=== PATIENT | female | born 1990 | race Caucasian/White ===

== ENCOUNTER 2017-10-07 09:57 | Emergency (ER) | payer BC, OTHER ==
[2017-10-07 10:52] VITALS: BP 114/69
--- NOTE | 2017-10-07 11:27 | UC ---
Complaint Female HPI - HPI Summary HPI Summary: pt is c/o "a yeast infection" describes as an itch-white d/c. she is also c/o urinary frequency but denies burning and urgency. she has a long hx of yeast infections and uti's that present like this. no abd pain, fever, risk/concern for std. s/s's x 2 days. - History Of Current Complaint Chief Complaint: [facility] Stated Complaint: PERSONAL Time Seen by Provider: 10/07/17 11:00 Hx Obtained From: Patient Hx Last Menstrual Period: last month ?: No Onset/Duration: Gradual Onset Timing: Constant Pain Intensity: 3 Character: Not Applicable - vaginal itch Aggravating Factor(s): Nothing Alleviating Factor(s): Nothing Associated Signs And Symptoms: Positive: Vaginal Discharge. Negative: Fever, Back Pain Related Hx: Similar Episode/Dx as: - yeast infection, uti's - Allergies/Home Medications Allergies/Adverse Reactions: Allergies Allergy/AdvReac Type Severity Reaction Status Date / Time bee venom protein (honey bee) Allergy Anaphylatic Verified 10/07/17 10:40 Shock latex Allergy Rash Verified 10/07/17 10:41 meloxicam Allergy See Comment Verified 10/07/17 10:41 Home Medications: Home Medications Ascorbic Acid/Multivit-Min [Emergen-C 1,000 mg Packet] 1 gena PO DAILY 10/07/17 [ History Confirmed 10/07/17] Etonogestrel [Nexplanon] 68 mg IMPLANT DAILY 10/07/17 [History Confirmed ] PMH/Surg Hx/FS Hx/Imm Hx - Surgical History Surgical History: Yes Surgery Procedure, Year, and Place: left ear abutment for hearing - Family History Known Family History: Negative: Renal Disease - Social History Occupation: Employed Full-time Lives: With Family Alcohol Use: Occasionally Substance Use Type: None Substance Use Comment - Amount & Last Used: occasional use Smoking Status (MU): Former Smoker Type: Cigarettes When Did the Patient Quit Smoking/Using Tobacco: 3 months ago Review of Systems Constitutional: Negative Skin: Negative Eyes: Negative ENT: Negative Respiratory: Negative Cardiovascular: Negative Gastrointestinal: Negative Genitourinary: Frequency, Vaginal/Penile Itching, Vaginal/Penile Discharge - white Motor: Negative Neurovascular: Negative Musculoskeletal: Negative Neurological: Negative Psychological: Negative Is Patient Immunocompromised?: No All Other Systems Reviewed And Are Negative: Yes Physical Exam Triage Information Reviewed: Yes Appearance: Well-Appearing Vital Signs: Initial Vital Signs Temp 98.8 F 10/07/17 10:44 Pulse 75 10/07/17 10:44 Resp 18 10/07/17 10:44 BP 114/69 10/07/17 10:44 Pulse Ox 99 10/07/17 10:44 Vital Signs Reviewed: Yes Eyes: Positive: Conjunctiva Clear ENT: Positive: Normal ENT inspection Neck: Positive: Supple, Nontender, No Lymphadenopathy Respiratory: Positive: Lungs clear, Normal breath sounds Cardiovascular: Positive: RRR, No Murmur Abdomen Description: Positive: Nontender, No Organomegaly, Soft, Other: - Pelvic exam refused by pt citing no risk/concern for std and c/w pmh yeast infections Musculoskeletal: Positive: No Edema Neurological: Positive: Alert Psychological Exam: Normal Psychological: Positive: Age Appropriate Behavior Skin Exam: Normal Diagnostics - Laboratory Diagnostic Studies Completed/Ordered: small leuks on u/a which may be from yeast vaginitis and urionary symptom is frequency only thus will not tx for uti and will wait for the culture. tx for yeast vaginitis based on hx Complaint Female Dx - Course Course Of Treatment: pt request Terconazole for external itch plus Diflucan as well. - Differential Dx/Diagnosis Provider Diagnoses: yeast vaginitis Discharge - Discharge Plan Condition: Stable Disposition: HOME Prescriptions: Fluconazole [Diflucan] 150 mg PO ONCE 1 Days #1 tablet Terconazole 20 gm VG DAILY 3 Days #1 cream.appl Patient Education Materials: Vaginitis (ED) Referrals: Ashley Perez MD [Primary Care Provider] - 7 Days
== END 2017-10-07 11:50 | disposition home or self-care (01) ==
LOC: UCCORT 09:57
DX: B37.3 Candidiasis of vulva and vagina (principal); R35.0 Frequency of micturition; Z87.440 Personal history of urinary (tract) infections; Z87.891 Personal history of nicotine dependence
CPT/HCPCS: 81003; 87086; 99212; G0463

== ENCOUNTER 2017-12-24 16:30 | Emergency (ER) | payer OTHER ==
[2017-12-24 17:11] VITALS: BP 123/86
--- NOTE | 2017-12-24 17:18 | UC ---
Complaint Female HPI - HPI Summary HPI Summary: 27 yo female with vaginal d/c and itching x days hx frequent yeast infections no f/c no abd pain - History Of Current Complaint Stated Complaint: URINARY COMPLAINT Hx Obtained From: Patient Hx Last Menstrual Period: 12/16/17 Onset/Duration: Gradual Onset, Lasting Days Timing: Constant Severity Initially: Mild Severity Currently: Mild Pain Intensity: 0 Pain Scale Used: 0-10 Numeric Character: Burning Aggravating Factor(s): [place] Associated Signs And Symptoms: Positive: Vaginal Discharge Related Hx: Similar Episode/Dx as: - yeast vaginitis - Allergies/Home Medications Allergies/Adverse Reactions: Allergies Allergy/AdvReac Type Severity Reaction Status Date / Time bee venom protein (honey bee) Allergy Anaphylatic Verified 12/24/17 16:58 Shock latex Allergy Rash Verified 12/24/17 16:58 meloxicam Allergy See Comment Verified 12/24/17 16:58 Home Medications: Home Medications Naproxen Sodium [Aleve] 220 mg PO BID 12/24/17 [History Confirmed 12/24/17] PMH/Surg Hx/FS Hx/Imm Hx Previously Healthy: Yes - Surgical History Surgical History: Yes Surgery Procedure, Year, and Place: left ear abutment for hearing - Family History Known Family History: Positive: Hypertension, Diabetes, Other - mom with hx DVTs Negative: Renal Disease - Social History Alcohol Use: Occasionally Substance Use Type: None Substance Use Comment - Amount & Last Used: occasional use Smoking Status (MU): Former Smoker Type: Cigarettes When Did the Patient Quit Smoking/Using Tobacco: 3 months ago Review of Systems Constitutional: Negative Skin: Negative Eyes: Negative ENT: Negative Respiratory: Negative Cardiovascular: Negative Gastrointestinal: Negative Genitourinary: Vaginal/Penile Itching, Vaginal/Penile Discharge Motor: Negative Neurovascular: Negative Musculoskeletal: Negative Neurological: Negative Psychological: Negative Is Patient Immunocompromised?: No All Other Systems Reviewed And Are Negative: Yes Physical Exam Triage Information Reviewed: Yes Appearance: Well-Appearing, No Pain Distress, Well-Nourished Vital Signs: Initial Vital Signs Temp 98.5 F 12/24/17 17:01 Pulse 81 12/24/17 17:01 Resp 16 12/24/17 17:01 BP 123/86 12/24/17 17:01 Pulse Ox 99 12/24/17 17:01 Vital Signs Reviewed: Yes Eyes: Positive: Conjunctiva Clear ENT: Positive: Hearing grossly normal. Negative: Nasal congestion, Nasal drainage, Trismus, Muffled voice, Hoarse voice Neck: Positive: Supple Respiratory: Positive: Lungs clear, Normal breath sounds, No respiratory distress, No accessory muscle use Cardiovascular Exam: Normal Cardiovascular: Positive: RRR Abdomen Description: Positive: Nontender, No Organomegaly, Soft. Negative: CVA Tenderness (R), CVA Tenderness (L) Pelvic Exam: Positive: No Cerv. Motion Tender, Discharge - whitish. Negative: External Exam Normal - erythema labia, Mass, Tender w/ Cervical Motion, Tender Adnexa, Tender Uterus Musculoskeletal: Positive: ROM Intact, No Edema Neurological: Positive: Alert Psychological Exam: Normal Skin Exam: Normal Complaint Female Dx - Differential Dx/Diagnosis Provider Diagnoses: yeast vaginitis Discharge - Sign-Out/Discharge Documenting (check all that apply): Discharge/Admit/Transfer - Discharge Plan Condition: Stable Disposition: HOME Patient Education Materials: Yeast Infection (ED) Referrals: Rock Johnson MD [Primary Care Provider] - If Needed Additional Instructions: urine culture pending - Billing Disposition and Condition Condition: STABLE Disposition: HOME
--- NOTE | 2017-12-26 07:03 | UC ---
- Progress Note Progress Note: notify pt + BV as well as yeast flagyl eRxed Discharge - Sign-Out/Discharge Documenting (check all that apply): Post-Discharge Follow Up - Discharge Plan Condition: Stable Disposition: HOME Prescriptions: Fluconazole 150 MG (NF) [Diflucan 150 mg (NF)] 150 mg PO ONCE #2 tab metroNIDAZOLE [Flagyl 500 MG TAB] 500 mg PO BID #14 tab Terconazole [Terazol 7] 45 gm VG BEDTIME 7 Days #1 cream.appl Patient Education Materials: Yeast Infection (ED) Referrals: Rock Johnson MD [Primary Care Provider] - If Needed Additional Instructions: urine culture pending - Billing Disposition and Condition Condition: STABLE Disposition: HOME
== END 2017-12-24 17:43 | disposition home or self-care (01) ==
LOC: UCCORT 16:30
DX: N76.0 Acute vaginitis (principal); B96.89 Other specified bacterial agents as the cause of diseases classified elsewhere; B37.3 Candidiasis of vulva and vagina; Z87.891 Personal history of nicotine dependence; Z88.8 Allergy status to other drugs, medicaments and biological substances
CPT/HCPCS: 81003; 87086; 87480; 87491; 87510; 87591; 87661; 99212; G0463

== ENCOUNTER 2018-04-11 14:13 | Emergency (ER) | payer OTHER ==
--- OUTSIDE RECORDS SUMMARY | 2018-04-11 14:26 | XMS REPORT ---
:1990 External Reference #:[id number] Author Organization Mitchel Lange M.D. Address [address] [place] [address] Phone [phone] Care Team Providers Name Role Phone Mariana Hoffman PA Care Team Information Valet Cashier Unavailable Payers Type Date Identification Numbers Payment Provider Subscriber Commercial Policy Number: [id number] [employer] Branden Montes PayID: [id number] 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 Active Family History Date Family Member(s) Problem(s) Comments Father Hyperthyroidism Mother Deep Vein Thrombosis Aunt Insulin Dependent Diabetes Social History Type Date Description Comments Marital Status Legal Status: Never Lives With Boyfriend Lives With Son ETOH Use Occasionally consumes alcohol Smoking 12/08/2015 Patient is a former smoker Quit 02/2014 (Occasional single cigarette social environment.) Recreational Drug Use Denies Drug Use Daily Caffeine Consumes on average 5 cups of regular coffee per day Allergies, Adverse Reactions, Alerts Date Description Reaction Status Severity Comments 04/20/2015 Latex active 12/02/2017 Meloxicam Anaphylaxis active 12/02/2017 Bee Sting active hives lips swell 04/20/2015 NKDA inactive Medications Medication Date Status Form Strength Qnty SIG Indications Ordering Provider Benzoyl Peroxide 03/10/ Active Gel 5% 45gm use twice L70.0 Mitchel 2017 a day Castellan os, M.D. Clindamycin 02/17/ Active Lotion 1% 60ml use twice L70.0 Mitchel Phosphate 2017 a day Castellan os, M.D. Lidocaine 12/16/ Active Solution 2% 30ml use on the B97.11 Mitchel Viscous 2018 painful Castellan ulcer as os, M.D. needed Baha Implant 12/02/ Active Mitchel 2018 Castellan os, M.D. Albuterol 12/02/ Active Nebulizer 0.63mg/3M 30uni use via Mitchel Sulfate 2017 L ts nebulizer Castellan four times os, M.D. a day as needed for asthma Naproxen 06/21/ Active Tablets 500mg 60tab 1 by mouth M25.562 2014 s twice a Castellan day os, M.D. Benzoyl Peroxide 02/17/ Hx Gel 2.5% 60gm use twice L70.0 Mitchel 2017 - a day Castellan 03/10/ os, M.D. 2018 Clindamycin 02/12/ Hx Gel 1.2-5% 45gm use daily L70.0 Mitchel Phos-Benzoyl 2017 - Castellan Perox 02/17/ os, M.D. 2018 Hydrocortisone 12/18/ Hx Cream 2.5% 30gm apply once L23.1 Mitchel 2015 - daily Castellan 12/18/ os, M.D. 2016 Diprolene 12/18/ Hx Ointment 0.05% 1tube use twice L23.1 Mitchel 2015 - a day Castellan 12/02/ until os, M.D. 2018 clear Metronidazole 10/02/ Hx Tablets 500mg 20tab one pill N77.1 Mitchel 2015 - s twice a Castellan 12/02/ day no os, M.D. 2018 etoh with product Clotrimazole/Bet 07/11/ Hx Cream 1-0.05% 45gm use 2 Mitchel amethasone 2015 - times a Castellan Dipropionate 10/02/ day until os, M.D. 2016 clear Amitriptyline 07/04/ Hx Tablets 50mg 30tab one at G47.00 Mitchel HCL 2015 - s bedtime Castellan 12/02/ os, M.D. 2018 Buspirone HCL 10/20/ Hx Tablets 5mg 90tab 1 by mouth F41.9 Mitchel 2014 - s daily Castellan 10/02/ os, M.DErick 2016 Maxalt-SENIOR SYSTEM OPERATOR 20/ Hx Tablets 5mg 18tab 1 every 2 G43.011 Mitchel 2014 - Dispers s hours ( Castellan 12/02/ max 3 per os, M.D. 2017 day ) Inderal LA 06/06/ Hx Caps ER 60mg 30cap one daily G43.011 Mitchel 2014 - 24HR s Castellan 10/02/ os, M.DErick 2016 Tylenol 04/20/ Hx Tablets 325mg 120ta 2 tabs po Mitchel 2014 - q4-6hrs Castellan 12/02/ prn os, M.DErick 2017 Sertraline HCL 04/20/ Hx Tablets 50mg 30tab 1 by mouth 311 Mitchel 2014 - every day Castellan 06/06/ os, M.DErick 2014 Medications Administered in Office Medication Date Status Form Strength Qnty SIG Indications Ordering Provider Tuberculosis, Administered Injection Wolak, Mariana, Mantoux 016 PA Tuberculosis, Administered Injection Wolak, Mariana, Mantoux 016 PA Tuberculosis, Administered Injection Mitchel Mantnam Lange M.D. Tuberculosis, Administered Injection Unknown Mantoux 015 Immunizations CPT Code Status Date Vaccine Reaction Lot # 65349 Given 10/04/2015 Hep B Vaccine - Adult Hep B Adult Dosage [id number] 60910 Given 10/02/2015 Influenza risk & benefits Flu Vac Vac,Quad,Split=>3 Yrs discussed [id number] 71086 Given 04/25/2009 Influenza Vac,Quad,Split=>3 Yrs 72191 Given 06/29/2007 HPV (Old Code) 3 Dose Gardasil 46219 Given 02/28/2007 HPV (Old Code) 3 Dose Gardasil 03135 Given 12/29/2006 Meningococcal conjugate vaccine Menveo 25593 Given 12/29/2006 Tdap Vaccine over 7 yrs old 74429 Given 12/29/2006 HPV (Old Code) 3 Dose Gardasil 11358 Given 01/19/2002 Hep B Vaccine - NB-19 Yrs (3 Dose) 17332 Given 06/03/2000 Hep B Vaccine - NB-19 Yrs (3 Dose) 94197 Given 06/03/1995 MMR 88253 Given 03/05/1995 DTaP Immunization 03323 Given 03/05/1995 OPV Polio 74840 Given 12/25/1992 OPV Polio 74611 Given 12/25/1992 DTaP Immunization 92286 Given 12/04/1992 MMR 48191 Given 07/30/1991 Hib, PRP-T Conjugate 4 Dose Sched acthib 45731 Given 03/31/1991 Hib, PRP-T Conjugate 4 Dose Sched acthib 29273 Given 1990 OPV Polio 49726 Given 1990 DTP 34910 Given 1990 Hib, PRP-T Conjugate 4 Dose Sched acthib 87731 Given 1990 OPV Polio 26888 Given 1990 DTP 20776 Given Unknown DTP Vital Signs Date Vital Result Comment 03/31/2018 Weight 142.00 lb BP Systolic 108 mmHg BP Diastolic 64 mmHg 12/02/2017 Weight 136.00 lb BP Systolic 98 mmHg BP Diastolic 64 mmHg Height 63.25 inches 5'3.25" Heart Rate 80 /min O2 % BldC Oximetry 99 % BMI (Body Mass Index) 23.9 kg/m2 02/08/2016 Weight 127.00 lb BP Systolic 90 mmHg BP Diastolic 48 mmHg 12/19/2015 BP Systolic 110 mmHg BP Diastolic 68 mmHg 12/08/2015 Weight 129.00 lb BP Systolic 90 mmHg BP Diastolic 60 mmHg 10/02/2015 Weight 130.00 lb BP Systolic 108 mmHg BP Diastolic 79 mmHg Height 63 inches 5'3" Heart Rate 70 /min Body Temperature 98.8 F Respiratory Rate 12 /min BMI (Body Mass Index) 23.0 kg/m2 07/04/2015 Weight 132.00 lb BP Systolic 108 mmHg BP Diastolic 72 mmHg Height 62.75 inches 5'2.75" Heart Rate 64 /min Body Temperature 98.5 F Respiratory Rate 16 /min BMI (Body Mass Index) 23.6 kg/m2 06/21/2015 Weight 134.00 lb BP Systolic 90 mmHg BP Diastolic 60 mmHg 06/06/2015 Weight 131.00 lb BP Systolic 102 mmHg BP Diastolic 70 mmHg 04/20/2015 Weight 130.00 lb BP Systolic 120 mmHg BP Diastolic 70 mmHg Results Test Date Test Result H/L Range Note Poc Urinalysis 12/24/2017 Poc Glucose, Urine Negative Negative Poc Bilirubin, Urine Negative Negative Poc Ketone, Urine Negative Negative Poc Specific [place], Urine 1.010 1.010-1.030 Poc Blood, Urine Trace-intact Negative Poc pH, Urine 6.0 5-9 Poc Protein, Urine Negative Negative Poc Urobilinogen, Urine 0.2 Negative Poc Nitrite, Urine Negative Negative Poc Leukocytes, Urine 1+ Negative Poc Color, Urine Yellow Poc Clarity, Urine Slightly Cloudy 1 Urine Culture And 12/24/2017 Urine Culture SEE RESULT BELOW 2, 3 Sensitivities GC/Chlamydia Amplified 12/24/2017 Chlamydia Negative Negative 4 Rna trachomatis Rna Neisseria gonorrhoeae (GC) Rna Negative Negative 4 Laboratory test 12/24/2017 Gardnerella/Yeast: Vaginal SEE RESULT BELOW 4, 5 finding Dna Trichomonas vaginalis Rna Negative Negative 4, 6 Laboratory test finding 12/04/2017 LDL Cholesterol Direct 44 mg/dL 7, 8 Basic Metabolic Panel 12/04/2017 Sodium 138 mmol/L Low 139-145 7 Potassium 3.9 mmol/L 3.5-5.0 7 Chloride 104 mmol/L 101-111 7 Co2 Carbon Dioxide 27 mmol/L 22-32 7 Anion Gap 7 mmol/L 2-11 7 Glucose 75 mg/dL 70-100 7 Blood Urea Nitrogen 7 mg/dL 6-24 7 Creatinine 0.56 mg/dL 0.51-0.95 7 BUN/Creatinine Ratio 12.5 8-20 7 Calcium 9.1 mg/dL 8.6-10.3 7 Egfr Non- 129.9 >60 7 Egfr 167.0 >60 7, 9 CBC 12/04/2017 White Blood Count 8.8 10^3/uL 3.5-10.8 7 Red Blood Count 4.18 10^6/uL 4.0-5.4 7 Hemoglobin 12.7 g/dL 12.0-16.0 7 Hematocrit 39 % 35-47 7 Mean Corpuscular Volume 93 fL 80-97 7 Mean Corpuscular Hemoglobin 31 pg 27-31 7 Mean Corpuscular HGB Conc 33 g/dL 31-36 7 Red Cell Distribution Width 14 % 10.5-15 7 Platelet Count 285 10^3/uL 150-450 7 Mean Platelet Volume 7.9 um3 7.4-10.4 7 Laboratory test 12/02/2017 HPV Laboratory [facility] 10 finding <SEE NOTE> Laboratory test 12/02/2017 [facility] Pap LABORATORY [facility] 11 finding <SEE NOTE> Laboratory test 02/08/2016 HCG,Serum NEGATIVE (Negative) finding (Qualitative) Laboratory test 12/14/2015 Cyst, Cutaneous See Note 12 finding Laboratory test 10/03/2015 Rubeola Antibodies, 163.0 Immune>29.9AU 13 finding Igg Mumps Antibodies, Igg <9.0 Immune>10.9AU Low 14 Varicella-Zoster Virus IgG Ab 1911 Immune>165ind 15 Rubella IgG Antibody 10/03/2015 Rubella IgG Antibody Reactive Reactive Rubella IgG Iu/ml 47.1 IU/mL >=10.0 16 Laboratory test finding 10/02/2015 Cytology Interface SEE RESULT BELOW 17 Order Chlamydia/GC 10/02/2015 Chlamydia Negative Negative Amplification Trachomatis, Gerri Neisseria Gonorrhoeae, Gerri Negative Negative Please note: See Note 18 Genital Culture W/ Gram Stain 10/02/2015 Gram Stain See Note 19 Genital Culture See Note 20 CBC 07/20/2015 White Blood Count 11.5 K/uL High 3.1-10.7 Red Blood Count 4.70 M/uL 3.90-5.40 Hemoglobin 13.5 gm/dL 11.6-15.8 Hematocrit 41.1 % 36.0-46.1 Mean Cell Volume 87.4 fl 80.9-99.0 Mean Corpuscular HGB 28.7 pg 25.9-32.7 Mean Corpuscular HGB Conc 32.8 g/dL 30.8-34.3 Platelet Count 296 K/uL 155-360 Red Cell Distri Width %CV 14.6 % High 11.7-14.4 Mean Platelet Volume 10.3 fL 8.9-12.4 Basic Metabolic Panel 07/20/2015 Glucose 149 mg/dL High 74-106 BUN 18 mg/dL 7-18 Creatinine 0.7 mg/dL 0.6-1.3 Glom Filtration Rate, Estimate >60 mL/min >60 If >60 mL/min >60 21 BUN/Creat 25.7 ratio Sodium 141 mmol/L 136-145 Potassium 3.6 mmol/L 3.5-5.1 Chloride 109 mmol/L High 98-107 Carbon Dioxide 22 mmol/L 21-32 Anion Gap 10 mEq/L 8-16 Calcium 8.4 mg/dL Low 8.5-10.1 Laboratory test finding 07/05/2015 CBC See Note 22 Basic Metabolic Panel See Note 23 LDL Cholesterol Profile See Note 24 Laboratory test finding 07/04/2015 Cytology Interface Order SEE RESULT BELOW 25 1 Steam Hoist Operator: [id number] 3 SEE RESULT BELOW Name: BRANDEN MONTES : [address]: Francisco Wall MD Acct: [id number] Unit: [id number] AGE: 27 Location: [facility] Re12/24/17 SEX: F Status: DEP ER SPEC: [id number] KODY: 12/24/17-1706 [facility] DR: Francisco Wall MD REQ: [id number] RECD: 12/24/17 STATUS: ZAN CHAMPAGNE DR: [facility] Mitchel Lange MD _ SOURCE: URINE SPDESC: ORDERED: Urine Culture COMMENTS: [id number] Procedure Result Reported Site Urine Culture Final 12/25/17- 1607 ML No Growth (<1,000 CFU/mL) * ML - Main Lab . END OF REPORT DEPARTMENT OF PATHOLOGY, [address] [place] [address] Regino Barrera M.D. Director [facility] # [id number] 4 Would you like to order Trichomonas Vaginalis RNA testing? Y [id number] 5 SEE RESULT BELOW Name: BRANDEN MONTES : [address]: Francisco Wall MD Acct: [id number] Unit: [id number] AGE: 27 Location: [facility] Re12/24/17 SEX: F Status: DEP ER SPEC: [id number] KODY: 12/24/17-1739 [facility] DR: Francisco Wall MD REQ: [id number] RECD: 12/24/17 STATUS: ZAN CHAMPAGNE DR: Mitchel Lange MD _ SOURCE: VAGINAL SPDESC: ORDERED: Roselyn,Yeast DNA COMMENTS: Would you like to order Trichomonas Vaginalis RNA testing? Y [id number] Procedure Result Reported Site Gardnerella/Yeast: Vaginal DNA Final 12/25/17- 1238 ML Organism 1 POSITIVE LOTTIE Organism 2 POSITIVE GARDNERELLA The presence of G. vaginalis, although suggestive, is not diagnostic for bacterial vaginosis. Results should be interpreted in conjuction with other clinical and laboratory data available. Women with vaginal discharge should be evaluated for risk factors of cervicitis and pelvic inflammatory disease, toxic shock syndrome (S.aureus), and if present, evaluated for organisms not included in this assay such as N. gonorrhoeae, C. trachomatis, Mobiluncus, Mycoplasma and/or Prevotella. Mixed infections may occur. The performance of this test on patient specimens collected during or immediately after antimicrobial therapy is unknown. The presence or absence of Lottie species, or G. vaginalis cannot be used as a test for therapeutic success or failure. * ML - Main Lab . END OF REPORT DEPARTMENT OF PATHOLOGY, [address] [place] [address] Regino Barrera M.D. Director [facility] # [id number] 6 [id number] GC/Chlamydia Source?: Endocervical Trichomonas Source: Endocervical 7 [id number] 8 Desirable: <100 Near Optimal: 100-129 Borderline High: 130-159 High: 160-189 Very High: >189 9 Because ethnic data is not always readily available, this report includes an eGFR for both -Americans and non- Americans. The National Kidney Disease Education Program (NKDEP) does not endorse the use of the MDRD equation for patients that are not between the ages of 18 and 70, are , have extremes of body size, muscle mass, or nutritional status, or are non- or non-. According to the National Kidney Foundation, irrespective of diagnosis, the stage of the disease is based on the level of kidney function: Stage Description GFR(mL/min/1.73 m(2)) 1 Kidney damage with normal or decreased GFR 90 2 Kidney damage with mild decrease in GFR 60-89 3 Moderate decrease in GFR 30-59 4 Severe decrease in GFR 15-29 5 Kidney failure <15 (or dialysis) [address] [place] [address] Amplified Molecular High Risk HPV Test Patient Name:BRANDEN MONTES Patient :1990 Ordering Physician:MITCHEL LANGE MD Accession Number [id number] Specimen(s) Received A: High Risk HPV SP Cervical/Endocervical Pap Smear - One Vial Other Case Numbers: [id number] Diagnosis RISK GROUPS RESULTS High Risk NEGATIVE Tested for HPV Types (16, 18, 31, 33, 35, 39, 45, 51, 52, 56, 58, 59, 66, 68) Comments The performance characteristics of the [facility] residual specimen tested for this assay were validated by [facility] [employer] [facility] and licensed for use by the [facility] Department of Health. This test has not been licensed by the FDA and the result is not intended to be used as the sole means for clinical diagnosis or patient management. Negative results do not rule out the presence of disease. Reported: 12/05/2017 07:44 Electronically Signed Out By Bhavani Ocasio anamika Cordova 11 LABORATORY [facility]. [address] [place] [address] GYNECOLOGIC CYTOLOGY REPORT Accession Number: [id number] Source of Specimen(s): A: [facility] Cervical / Endocervical Pap Smear - One Vial Clinical Diagnosis and History: Date of Last Menstrual Period: 11/01/17 Other Clinical Conditions: Last Pap Smear: unknown HPV ASSAY REQUESTED Specimen Adequacy SATISFACTORY FOR EVALUATION PRESENCE OF ENDOCERVICAL/TRANSFORMATION ZONE COMPONENT General Categorization NEGATIVE FOR INTRAEPITHELIAL LESION OR MALIGNANCY Interpretation NEGATIVE FOR INTRAEPITHELIAL LESION OR MALIGNANCY Fungal organisms morphologically consistent with Lottie sp. Reported: 12/04/2017 06:46 Electronically Signed Out By Anna ELLISON(ASCP) dol ICD code: Z00.00 CPT code: A: [id number] 12 OPERATION/PROCEDURE Excision DIAGNOSIS: "SKIN, LEFT UPPER BACK, EXCISION": FOLLICULAR CYST, INFUNDIBULAR TYPE. EP/td 1029 GROSS Received in formalin in an appropriately labeled container with patient name and accession number. The specimen is designated as "0.6 x 0.6 CM. CYST EXCISED LEFT UPPER BACK" and consists of a 0.6 x 0.5 x 0.4 cm. dukes white firm nodule. The specimen is bisected to reveal a dukes yellow material; submitted entirely in a single cassette. CC/td PRE OPERATIVE DIAGNOSIS Lesion upper back REVIEW CODE CODE: I Signed Electronically signed Gabriela FARAH MD 1053 13 Negative <25.0 Equivocal 25.0 - 29.9 Positive >29.9 Presence of antibodies to Rubeola is presumptive evidence of immunity except when acute infection is suspected. 14 Negative <9.0 Equivocal 9.0 - 10.9 Positive >10.9 A positive result generally indicates past exposure to Mumps virus or previous vaccination. 15 Negative <135 Equivocal 135 - 165 Positive >165 A positive result generally indicates exposure to the pathogen or administration of specific immunoglobulins, but it is not indication of active infection or stage of disease. Performed at: [facility] [id number] Assistant Women'S Rowing Coach: Ally Almaguer MD, Phone: [phone] 16 Values >=10.0 IU/mL are positive for IgG antibodies to rubella virus and are considered IMMUNE. 17 SEE RESULT BELOW Name: BRANDEN MONTES : [address]: Mariana GAFFNEY Acct: [id number] Unit: [id number] AGE: 25 Location: [facility] Re10/02/15 SEX: F Status: REG REF SPEC: [id number] KODY: 10/02/15-1630 [facility] DR: Mariana GAFFNEY REQ: [id number] RECD: 10/03/15 STATUS: CHULA CHAMPAGNE DR: [facility], Lab Mila Treviño MD _ ORDERED: IMAGE ANALYSIS FINAL DIAGNOSIS Negative for Intraepithelial lesion or Malignancy Fungal organisms morphologically consistent with Lottie species A. Ectocervical/Endocervical Specimen Adequacy: Satisfactory of evaluation Transformation zone component identified Patient Information: HPV: Thin Layer Pap Test w/reflex to high risk HPV RNA testing when ASCUS Actual Specimen Date: 10/02/15 Last Menstrual Date: 09/06/15 ?: N Post Menopausal?: N Hysterectomy?: N Previous Abnormal Pap Smears?:Y If Yes, enter Diagnosis: Atypical Squamous cells of uncertain significance. Signed (signature on file) SCOT Gomez(ASCP) 10/04 8851 This Pap test was evaluated with the assistance of the [employer] Test Imaging System. Due to cytologic findings at the mixed crop and livestock farm worker microscope, comprehensive manual rescreening by a Human Intelligence may be required. The Pap Smear is a screening test designed to aid in the detection of premalignant and malignant conditions of the uterine cervix. It is not a diagnostic procedure and should not be used as the sole means of detecting cervical cancer. Both false- positive and false- negative reports do occur. Depending on your risk status, a Pap smear should be obtained and evaluated every 1-3 years. END OF REPORT * ML=Testing performed at Main Lab DEPARTMENT OF PATHOLOGY, [address] [place] [address] Regino Barrera M.D. Director [facility] # [id number] 18 Acceptable specimens for this test are male urethral swab, endocervical swab and liquid based pap specimens, vaginal swabs in APTIMA transports and first void urine. See online Directory of Services for test number for rectal and pharyngeal specimens. Performed at: RN - [facility] [address] [id number] Assistant Women'S Rowing Coach: Ally Almaguer MD, Phone: [phone] 19 GRAM STAIN ! GRAM STAIN INDICATES NORMAL GENITAL DORIAN ! RARE GR POS. BACILLI SUGGESTIVE OF LACTOBACILLUS SP. ! NO WHITE BLOOD CELLS 20 Organism 1 ! YEAST LIKE ORGANISM Quantity ! MANY 21 Note: Persistent reduction for 3 months or more in an eGFR <60 mL/min/1.73 m2 defines CKD. Patients with eGFR values >/=60 mL/min/1.73 m2 may also have CKD if evidence of persistent proteinuria is present. The original MDRD equation for estimated GFR is not valid for patients less than 18 years of age. Additional information may be found at www.kdoqi.org. 22 NO SPECIMENS RECEIVED AT [facility], PLEASE CALL OFFICE TO INFORM THEM. SPECIMES WERE RECEIVED BY LAB.BEW IN ERROR? PLEASE INVESTIGATE, THANK YOU. 23 NO SPECIMENS RECEIVED AT [facility], PLEASE CALL OFFICE TO INFORM THEM. SPECIMES WERE RECEIVED BY LAB.BEW IN ERROR? PLEASE INVESTIGATE, THANK YOU. 24 NO SPECIMENS RECEIVED AT [facility], PLEASE CALL OFFICE TO INFORM THEM. SPECIMES WERE RECEIVED BY LAB.BEW IN ERROR? PLEASE INVESTIGATE, THANK YOU. 25 SEE RESULT BELOW Name: BRANDEN MONTES : [address]: Mitchel Lange MD Acct: [id number] Unit: [id number] AGE: 25 Location: [facility] Re07/05/15 SEX: F Status: REG REF SPEC: [id number] KODY: 07/04/15-154 [facility] DR: Mitchel Lange MD REQ: [id number] RECD: 07/05/15 STATUS: CHULA CHAMPAGNE DR: [facility], Lab _ ORDERED: IMAGE ANALYSIS, PAP SM PATH REV FINAL DIAGNOSIS Please Repeat A. Ectocervical/Endocervical Specimen Adequacy: Unsatisfactory for evaluation Insufficient epithelial component Patient Information: HPV: Thin Layer Pap Test w/reflex to high risk HPV RNA testing when ASCUS Actual Specimen Date: 07/04/15 LMP If Unknown: 5-6 days ago ?: N Post Menopausal?: N Hysterectomy?: N Signed (signature on file) Gia Farah MD 1027 This Pap test was evaluated with the assistance of the [employer] Test Imaging System. Due to cytologic findings at the mixed crop and livestock farm worker microscope, comprehensive manual rescreening by a Human Intelligence may be required. The Pap Smear is a screening test designed to aid in the detection of premalignant and malignant conditions of the uterine cervix. It is not a diagnostic procedure and should not be used as the sole means of detecting cervical cancer. Both false- positive and false- negative reports do occur. Depending on your risk status, a Pap smear should be obtained and evaluated every 1-3 years. END OF REPORT * ML=Testing performed at Main Lab DEPARTMENT OF PATHOLOGY, [address] [place] [address] Regino Barrera M.D. Director [facility] # [id number] Procedures Date CPT Code Description Status 12/14/2015 77602 Exc. Lesion Extrem .6 -1.0 CM Completed 10/02/2015 24994 Audiogram, Screen Only Pure Tone Completed Encounters Type Date Location Provider CPT E/M Dx Office Visit 03/31/2018 2:45p Main Office Mitchel Lange M.D. 53734 M54.2 R53.83 K59.00 Office Visit 12/16/2017 3:15p Main Office Mitchel Lange M.D. 99418 B97.11 Office Visit 12/02/2017 8:15a Main Office Mitchel Lange M.D. 95194 Z01.419 Office Visit 02/08/2016 3:15p [place] [address] N91.2 R11.0 Office Visit 12/08/2015 9:45a Main Office Mitchel Lange M.D. 05459 R53.83 N94.1 Office Visit 10/02/2015 3:30p [place] [address] R10.2 N94.1 N77.1 Z23 Z01.411 Z11.1 Office Visit 07/04/2015 3:00p Main Office Mitchel Lange M.D. 97245 Z00.01 G47.00 Z01.419 Office Visit 06/21/2015 3:45p Main Office Mitchel Lange M.D. 50893 F41.9 M25.562 L91.8 Office Visit 06/06/2015 3:30p Main Office Mitchel Lange M.D. 01272 F41.9 G43.011 Office Visit 04/20/2015 2:45p Main Office Mitchel Lange M.D. 58954 300.00 311 Plan of Care Future Appointment(s):12/03/2018 8:15 am - Mitchel Lange M.D. at Main [facility]9803/31/2018 - Mitchel Lange M.D.M54.2 CervicalgiaFollow up:1 week.R53.83 Other fatigueNew Labs:Comprehensive Metabolic PanelCBCComprehensive Carolina PanelC-Reactive Protein,QuantEbv Acute Infection AntibodiesSedimentation RateGlycohemoglobin F1tIaln Screen (Heterophile)TSH Reflex FT4 And/Or DD2Mdksztp D,25-XqngjlyU19.00 Constipation, unspecified
[2018-04-11 14:55] VITALS: BP 109/72
--- NOTE | 2018-04-11 15:15 | UC ---
Complaint Female HPI - HPI Summary HPI Summary: 27 year old female presents with 2 day history of urgency, dysuria, frequency, and mild suprapubic "cramping". Started taking Pryidium she had left over from a previous UTI today. States it is . Denies fever, chills, back/flank pain, nausea, vomiting, or vaginal discharge. LMP 03/26/2018. Has Nexplanon. - History Of Current Complaint Chief Complaint: UCGU Stated Complaint: URINARY Time Seen by Provider: 04/11/18 14:36 Hx Obtained From: Patient Hx Last Menstrual Period: 03/26/18 ?: No Onset/Duration: Gradual Onset Timing: Lasting Days - 2 Severity Initially: Mild Severity Currently: Mild Pain Intensity: 0 Character: Burning Aggravating Factor(s): Urination Alleviating Factor(s): Nothing Associated Signs And Symptoms: Negative: Fever, Back Pain, Vaginal Bleeding/ Discharge, Nausea, Vomiting(# Of Episodes =), Genital Swelling, Genital Blisters - Risk Factors Ectopic Risk Factor: Negative Ovarian Torsion Risk Factor: Negative - Allergies/Home Medications Allergies/Adverse Reactions: Allergies Allergy/AdvReac Type Severity Reaction Status Date / Time bee venom protein (honey bee) Allergy Anaphylatic Verified 04/11/18 14:54 Shock latex Allergy Rash Verified 04/11/18 14:54 meloxicam Allergy See Comment Verified 04/11/18 14:54 PMH/Surg Hx/FS Hx/Imm Hx - Additional Past Medical History Additional PMH: non-contributory Previously Healthy: Yes - Surgical History Surgical History: Yes Surgery Procedure, Year, and Place: left ear abutment for hearing. - Family History Known Family History: Positive: Hypertension, Diabetes, Other - mom with hx DVTs Negative: Renal Disease - Social History Occupation: Employed Full-time Lives: With Family Alcohol Use: Occasionally Substance Use Type: None Substance Use Comment - Amount & Last Used: occasional use Smoking Status (MU): Former Smoker Type: Cigarettes When Did the Patient Quit Smoking/Using Tobacco: 3 months ago Review of Systems Constitutional: Negative Genitourinary: Dysuria, Frequency, Urgency Is Patient Immunocompromised?: No All Other Systems Reviewed And Are Negative: Yes Physical Exam Triage Information Reviewed: Yes Appearance: Well-Appearing, No Pain Distress, Well-Nourished Vital Signs: Initial Vital Signs Temp 98.2 F 04/11/18 14:50 Pulse 71 04/11/18 14:50 Resp 16 04/11/18 14:50 BP 109/72 04/11/18 14:50 Pulse Ox 100 04/11/18 14:50 Vital Signs Reviewed: Yes Respiratory: Positive: Chest non-tender, Lungs clear, Normal breath sounds Cardiovascular: Positive: RRR, No Murmur Abdomen Description: Positive: Nontender, No Organomegaly, Soft. Negative: CVA Tenderness (R), CVA Tenderness (L) Bowel Sounds: Positive: Present Skin Exam: Normal Complaint Female Dx - Course Course Of Treatment: 27 year old with 2 day history of urgency, frequency, dysuria, and lower abdominal cramping. She started taking some Pyridium she had left over from a previous UTI therefore we were unable to perform a POC UA. Will start empiric treatment with Bactrim DS BID x 5 days and provide her with a new prescription for Pyridium for 2 days. She is to follow up with PCP in 3 days if no improvement. Warning symptoms requiring immediate evaluation reviewed. Verbalizes understanding and agrees with POC. - Differential Dx/Diagnosis Provider Diagnoses: acute urinary cystitis Discharge - Sign-Out/Discharge Documenting (check all that apply): Patient Departure All imaging exams completed and their final reports reviewed: Yes - Discharge Plan Condition: Stable Disposition: HOME Prescriptions: Phenazopyridine TAB* [Pyridium 100 mg TAB*] 100 mg PO Q8HR #6 tab Sulfamethox/Trimethoprim DS* [Bactrim DS 800/160 TAB*] 1 tab PO BID #10 tab Patient Education Materials: Urinary Tract Infection in Women (DC) Referrals: Rock Johnson MD [Primary Care Provider] - 3 Days (If no improvement in symptoms.) Additional Instructions: Start Bactrim DS 1 tab twice daily for 5 days. Take the Pyridium 1 tab every 8 hours to help with the discomfort. Do not use for more than 2 days as this could mask symptoms if your infection is not treated effectively. Push lots of fluids. To help prevent urinary tract infections in the future: * Use the bathroom as soon as you feel the urge and be sure to completely empty your bladder. * Be sure to wipe from front to back. * Use the bathroom immediately after sexual intercourse. A urine culture was sent today to see if any bacteria grow out and to make sure that the antibiotic you were prescribed is appropriate. We will notify you if any changes in treatment need to be made. Follow up with with you primary care provider in 3 days if no improvement in symptoms. Seek immediate medical attention if you develop fever greater than 100.5 F, develop severe abdominal pain, persistent vomiting, or any worsening of symptoms. - Billing Disposition and Condition Condition: STABLE Disposition: Home
== END 2018-04-11 15:40 | disposition home or self-care (01) ==
LOC: UCCORT 14:13
DX: N30.00 Acute cystitis without hematuria (principal); Z87.891 Personal history of nicotine dependence; Z88.8 Allergy status to other drugs, medicaments and biological substances
CPT/HCPCS: 87086; 99212; G0463

== ENCOUNTER 2018-07-31 07:42 | Day surgery (SDC) | payer OTHER ==
[~2018-07-31 07:42] MED LIST: Buffered Lidocaine 0.9% SYRIN* 5 ML/SYR SYRINGE INTRADERM ONE; Famotidine IV* 10 MG/ML 2 ML (20 mg) IV ONE; Lactated Ringers 1000 ML Bag* 1,000 ML IV SCH
[2018-07-31] MEDS ORDERED: Famotidine IV* 10 MG/ML 2 ML (20 mg) ONE (08:34)
[2018-07-31 08:42] LABS: ABS Basophils 0 10^3/ul (0-0.2); ABS Eosinophils 0.1 10^3/ul (0-0.6); ABS Lymphocytes 1.6 10^3/ul (1.0-4.8); ABS Monocytes 0.5 10^3/ul (0-0.8); ABS Neutrophils 5.4 10^3/ul (1.5-7.7); ABS Nucleated RBC 0 10^3/ul; Eosinophil % 1.2 %; Hematocrit 38 % (35-47); Hemoglobin 12.8 g/dl (12.0-16.0); Lymphocyte % 20.8 %; Mean Corpuscular HGB Conc 34 g/dl (31-36); Mean Corpuscular Hemoglobin 31 pg (27-31); Mean Corpuscular Volume 91 fL (80-97); Mean Platelet Volume 7.7 fL (7.4-10.4); Nucleated Red Blood Cells % 0; Platelet Count 308 10^3/ul (150-450); Red Blood Count 4.12 10^6/ul (4.00-5.40); Red Cell Distribution Width 13 % (10.5-15); White Blood Count 7.7 10^3/ul (3.5-10.8)
[2018-07-31] MEDS ORDERED: Bupivacaine 0.5% W/EPI SDV* 30 ML VIAL ONE (08:51)
[2018-07-31] MEDS ORDERED: Midazolam* 1 MG/ML 5 ML VIAL (5 MG) ONE (09:00)
[2018-07-31] MEDS ORDERED: fentaNYL* 50 MCG/ML 2 ML VIAL (100 MCG VIAL) ONE (09:24)
[2018-07-31] MEDS ORDERED: Scopolamine 1.5 mg* PATCH ONE (09:25)
[2018-07-31] MEDS ORDERED: Succinylcholine* 20 MG/ML 10 ML VIAL ONE (09:44)
[2018-07-31] MEDS ORDERED: Ketorolac INJ* 30 MG/ML 1 ML VIAL ONE (09:44)
[2018-07-31] MEDS ORDERED: Dexamethasone IV* 4 MG/ML 1 ML (4 MG) ONE (09:44)
[2018-07-31] MEDS ORDERED: Lidocaine 2% PF * 5 ML VIAL ONE (09:44)
[2018-07-31] MEDS ORDERED: DiMENhydriNATE IV* 50 MG/ML VIAL ONE ×2 (09:44→10:25)
[2018-07-31] MEDS ORDERED: Propofol* 10 MG/ML 20 ML BTL ONE (09:44)
[2018-07-31] MEDS ORDERED: Ondansetron INJ* 2 MG/ML VIAL ONE (09:44)
[2018-07-31] MEDS ORDERED: HYDROmorphone INJ1* 1 MG/ML SYRINGE ONE ×2 (09:47→11:51)
[2018-07-31] MEDS ORDERED: Acetaminophen IV 1GM/100ML * 1,000 MG/100 ML VIAL IVPB ONE (10:27)
[2018-07-31] MEDS ORDERED: Naloxone* 0.4 MG/ML 1 ML VIAL IV PRN (10:27)
[2018-07-31] MEDS ORDERED: DiMENhydriNATE IV* 50 MG/ML VIAL IV PUSH PRN (10:27)
[2018-07-31] MEDS ORDERED: Acetaminophen IV 1GM/100ML * 100 ML ONE (10:28)
[2018-07-31] MEDS: HYDROmorphone INJ1* 1 MG/ML SYRINGE IV PRN ×2 (11:52→11:58)
[2018-07-31] MEDS ORDERED: Midazolam* 1 MG/ML 2 ML VIAL (2 MG) ONE (11:55)
[2018-07-31] MEDS ORDERED: Midazolam* 1 MG/ML 2 ML VIAL (2 MG) IV ONE (12:04)
[2018-07-31 13:39] VITALS: BP 113/65
--- NOTE | 2018-08-01 03:08 | OP ---
DATE OF OPERATION: 07/31/18 - [facility] DATE OF : 89 SURGEON: Dr. Blair. MANAGER ENGAGEMENT: None. ANESTHESIA: General endotracheal tube. PRE-OP DIAGNOSIS: Menorrhagia, desires permanent sterilization, removal of her Nexplanon implant. POST-OP DIAGNOSIS: Menorrhagia, desires permanent sterilization, removal of her Nexplanon implant. OPERATIVE PROCEDURE: D and C, hysteroscopy, endometrial ablation, laparoscopy and bilateral tubal ligation, and removal of Nexplanon. ESTIMATED BLOOD LOSS: Minimal. SPECIMEN: Includes endometrium. FINDINGS: Include normal cavity on hysteroscopy. Both tubes and ovaries and uterus appeared normal. DESCRIPTION OF PROCEDURE: The patient identified, procedure identified as a D and C, hysteroscopy, endometrial ablation, laparoscopic bilateral tubal ligation , and removal of Nexplanon. The patient was taken to the operating room and prepped and draped in the usual fashion in a dorsal lithotomy position under general anesthesia. Two single-toothed tenaculums were placed in the anterior lip of the cervix. Cervix was sounded to 10 cm. Cervix was easily dilated up to a #8 Hegar dilator. Cervical length was found to be 4 cm. The hysteroscope was inserted. The above findings were noted. A sharp curette was inserted and sharp curettage performed. A NovaSure device was opened. The array was checked. NovaSure device was placed with a cavity length of 6 cm. The device opened to a cavity width of 5 cm and then with manipulation was up to 5.1. Power setting was 168 and the CO2 perforation test was performed and the device passed. NovaSure ablation took place for 36 seconds. At the end of the procedure, a good ablation was noted through-out the uterine cavity. Using the hysteroscope, all instruments were removed from the vagina except for the tenaculums which were used for manipulation. A small infraumbilical incision was made and a Veress needle inserted through this. The abdomen was insufflated to 50 mmHg. The Veress needle was removed and the trocar was inserted. The trocar was removed from the sheath and laparoscope was inserted. The above findings were noted. Second incision was made 2 cm above the pubic symphysis in the midline. Care was taken to stay above the bladder which did have some scarring to the previous incision. The trocar was inserted under direct visualization. The bipolar Kleppinger cautery was inserted. The right fallopian tube was grasped in its mid portion, followed out to its fimbriated end and fulgurated x4. Same procedure was done on the left after following it out to its fimbriated ends. Good hemostasis was verified. All instruments removed from the abdomen. The abdomen was deflated off CO2. The skin was then closed with Indermil. Attention was then turned to the Nexplanon in the right arm. The Nexplanon was identified. A chlorhexidine prep was placed. A small incision was made in the arm and the Nexplanon was easily identified and removed and the small incision was closed using again Indermil. Kerlix was applied. All sponge and instrument counts were correct. The tenaculums were removed from the vagina and the patient returned to the recovery room in stable condition. [id number] #: [id number] MARVA
== END 2018-07-31 17:34 | disposition home or self-care (01) ==
LOC: OR 07:42
PROVIDERS: ATTEND Obstetrics & Gynecology
DX: N92.0 Excessive and frequent menstruation with regular cycle (principal); Z30.2 Encounter for sterilization; R01.1 Cardiac murmur, unspecified; R00.2 Palpitations; F41.9 Anxiety disorder, unspecified
CPT/HCPCS: 36415; 81025; 85025; 86850; 86900; 86901; 88300; 88305; A9270-GY; J0330; J1100; J1170; J1240; J1885; J2250; J2405; J2704; J3010